=== PATIENT | male | born 1985 | race Caucasian/White ===

== ENCOUNTER 2019-06-01 08:23 | Outpatient (RCR) | payer OTHER, SELFPAY ==
--- NOTE | 2019-06-01 10:35 | HP.PTEVAL ---
Patient's Visit Information CORINNE MARSH is a 34 year old M referred to Physical Therapy by DEVIN ROLDAN with a diagnosis of BPPV. Date of Evaluation: 06/01/19 Physical Therapist: Ra Burton, DPT, OCS, CSCS - Visit Plan Plan: No skilled PT desired/required at this point. Pt educated on BPPV and BD exercises given in case it returned. Educated to call me or let doctor know if dizzyness returns. Pt did ot desire treatment since he self treated and feels so much better. - Subjective Findings: One month or so ago started getting dizzy looking to left in recliner. That was 5/10. For the next two weeks it came and went. This made work not enjoyabe. Happened a number of times at work and getting out of bed. No falls but did stumble back into bed or take extra time once standing. Went to doctor at around week 2 and diagnosed with vertigo. That was 2 weeks ago. Did self treatment at home which has helped with positions given to hi by someone. Only gets slight symptoms over the last week with quick movement 3/10 lasting 10 minutes. Works at [employer] in [place]. - Objective Walks normal, trasnfers normal and I, steps reciprocal without rail. + R hallpike shena assymetrical dizzyness minor but no nystagmus.- L hallpike, - roll test. c/s AROM WFL and without pain today, Full functional UE AROM. - Balance Scores Functional Gait Assessment Score: 30 % Disability: 0 - Rehabilitation Potential Physical Therapy Diagnosis: BPPV Rehabilitation Potential: Fair - Anticipated Interventions Thank you for the opportunity to evaluate your patient. For Medicare and Medicare HMO plans, please review the plan of care and approve it. It will need to be FAXED BACK to us at [phone] for Medicare purposes. For Medicare only, by signing this I certify the plan of care. Please let me know if there are questions or concerns regarding this plan of care. Physician Signature: Date:
== END 2019-06-01 12:51 | disposition home or self-care (01) ==
LOC: PT 08:23
DX: R42 Dizziness and giddiness (principal)
CPT/HCPCS: 97161